=== PATIENT | female | born 1965 | race Caucasian/White ===

== ENCOUNTER 2017-03-12 13:33 | Emergency (ER) | payer OTHER ==
[~2017-03-12] VITALS: Ht 152.4 cm; Wt 40.8 kg
[~2017-03-12 13:33] MED LIST: LORA-476 PO; LURA40TA PO; METF1000 PO; QUET200T2 PO
[2017-03-12 13:36] VITALS: BP 116/87
--- NOTE | 2017-03-12 13:40 | NUR ---
Patient BIBA to bed 4 at this time.
--- NOTE | 2017-03-12 13:45 | NUR ---
PT BIBA FROM HOME S/P MECHANICAL FALL AT HOME, GAIT UNKNOWN, HITTING HEAD, SUSTAINING 2CM LACERATION TO RIGHT PARIETAL REGION OF HEAD. NO ACTIVE BLEEDING NOTED TO SITE AT THIS TIME. UNKNOWN LOC, PT ABLE TO VERBALLY RESPOND TO SIMPLE QUESTIONS AND ABLE TO FOLLOW SIMPLE COMMANDS. PT AWAKE, ALERT ON ARRIVAL, PERRLA HX DM, SCHIZOPHRENIA, MENTAL DELAY.SKIN IS PINK/WARM/DRY; TACHYCARDIA NOTED ON MONITOR AT THIS TIME; PATIENT STATES "NO" WHEN ASKED IF SHE WAS IN ANY PAIN, NO GUARDING OR FACIAL CLENCHING NOTED AT THIS TIME; VSS; BL LUNG SOUNDS CLEAR, RR EVEN/UNLABORED AT THIS TIME; PT NOTED W/ DIAPER FROM HOME. PATIENT POSITIONED FOR COMFORT; HOB ELEVATED; BED DOWN. LISA CHAVARRIA MADE AWARE OF PT STATUS. Addendum: 03/12/17 at 1411 by GauzyR PER [facility], PT ACTING NEUROLOGICALLY AT BASELINE. Addendum: 03/12/17 at 1549 by [facility] POST IRRIGATION TO RIGHT SIDE OF HEAD, NO LACERATIONS NOTED AT THIS TIME, SLIGHT BLEEDING NOTED ON ARRIVAL, HEMATOMA PRESENT AT THIS TIME, ER MD NOTIFIED, WILL CONTINUE TO MONITOR
--- NOTE | 2017-03-12 13:45 | NUR ---
Note undone in EDM - 03/12/17 at 1407 by SHAYNE PT BIBA FROM HOME S/P MECHANICAL FALL AT HOME, GAIT UNKNOWN, HITTING HEAD, SUSTAINING 2CM LACERATION TO RIGHT PARIETAL REGION OF HEAD. UNKNOWN LOC, PT IS VERBAL. HX DM, SCHIZOPHRENIA, MENTAL DELAY. SKIN IS PINK/WARM/DRY; HR EVEN AND REGULAR; PT DENIES ANY FEVER, CP, SOB, OR COUGH AT THIS TIME; PATIENT STATES "NO" WHEN ASKED IF SHE WAS IN ANY PAIN, NO GUARDING OR FACIAL CLENCHING NOTED AT THIS TIME; VSS; PATIENT POSITIONED FOR COMFORT; HOB ELEVATED; BED DOWN. ER MADE AWARE OF PT STATUS.
[2017-03-12] MEDS ORDERED: NACL 0.9% 1,000 ML IV ONE (15:05)
--- NOTE | 2017-03-12 15:10 | NUR ---
XRAY AT BEDSIDE
[2017-03-12 15:18] LABS: BASOPHILS # (AUTO) 0.5 K/uL (0.00-0.22); EOSINOPHILS # (AUTO) 0.2 K/uL (0-0.4); EOSINOPHILS % (AUTO) 1.3 % (0.0-4.0); HEMATOCRIT 40.7 % (36-48); HEMOGLOBIN 13.2 g/dL (12.0-16.0); LYMPHOCYTES # (AUTO) 1.5 K/uL (2.5-16.5); LYMPHOCYTES % (AUTO) 10.5 % (20.5-51.1); MEAN CORPUSCULAR HEMOGLOBIN 27 pg (27-31); MEAN CORPUSCULAR HGB CONC 32 g/dL (33-37); MEAN CORPUSCULAR VOLUME 82 fL (80-94); MONOCYTES # (AUTO) 0.4 K/uL (0.8-1.0); MONOCYTES % (AUTO) 3.2 % (1.7-9.3); NEUTROPHILS # (AUTO) 11.3 K/uL (1.8-7.7); PLATELET COUNT (AUTO) 280 K/uL (140-450); RED BLOOD CELL COUNT(AUTO) 4.97 MIL/uL (4.20-5.40); RED CELL DISTRIBUTION WIDTH 14.7 % (11.6-13.7); WHITE BLOOD COUNT (AUTO) 13.9 K/uL (4.8-10.8)
[2017-03-12 15:29] LABS: ANION GAP 19.5 (8-16); CALCIUM 9.1 mg/dL (8.5-10.1); CARBON DIOXIDE 23.4 mmol/L (21-32); CREATININE 0.7 mg/dL (0.6-1.3); POTASSIUM 4.9 mmol/L (3.5-5.1)
[2017-03-12 15:35] LABS: PHENYTOIN (DILANTIN) 0.6 ug/ml (10.0-20.0)
[2017-03-12 15:36] LABS: PHENOBARBITAL < 1 ug/ml (15-40)
[2017-03-12 15:54] LABS: AMPHETAMINE, URINE NEG. ng/ml (NEG <=1000); BARBITURATE, URINE NEG. ng/ml (NEG <=200); BENZODIAZEPINE, URINE NEG. ng/mL (NEG <=200); CANNABINOID, URINE NEG. ng/mL (NEG <=50); COCAINE, URINE NEG. ng/mL (NEG <=300); OPIATE, URINE NEG. ng/mL (NEG <=2000); PHENCYCLIDINE SCREEN,URINE NEG. ng/mL (NEG <=25)
--- NOTE | 2017-03-12 16:54 | NUR ---
Patient appears to be resting comfortably in bed. Respirations even and unlabored. FAMILY AT BEDSIDE.
--- NOTE | 2017-03-12 17:27 | NUR ---
PT TO CT VIA GURNEY, TRANSPORTED BY TECH
--- NOTE | 2017-03-12 17:50 | NUR ---
PT RETURNED FROM CT VIA JAIME, ACCOMPANIED BY TREVOR, PT STABLE AT THIS TIME, PUT BACK ON ALL MONITORS
--- NOTE | 2017-03-12 18:20 | NUR ---
Patient appears to be resting comfortably in bed. Vital Signs STABLE AT THIS TIME. Respirations even and unlabored. ON ALL MONITORS AND SEIZURE PRECAUTIONS, BED AT LOWEST POSITION, WILL CONTINUE TO MONITOR
--- NOTE | 2017-03-12 19:05 | NUR ---
IV removed, catheter intact and site benign. Applied folded 4x4 gauze and tape to stop bleeding. PT TOLERATED PROCEDURE WELL.
[2017-03-12 19:15] VITALS: BP 134/78
--- NOTE | 2017-03-12 19:15 | NUR ---
Patient discharged with v/s stable. Written and verbal after care instructions given and explained. Patient verbalized understanding. Wheel Chair Assisted with FAMILY to car. All questions addressed prior to discharge. Advised to follow up with PMD.
== END 2017-03-12 19:15 | disposition home or self-care (01) ==
LOC: MED 13:33
DX: S00.81XA Abrasion of other part of head, initial encounter (principal); E11.9 Type 2 diabetes mellitus without complications; W18.39XA Other fall on same level, initial encounter; F20.9 Schizophrenia, unspecified; Y93.89 Activity, other specified; Z79.899 Other long term (current) drug therapy; Y92.89 Other specified places as the place of occurrence of the external cause; Y99.8 Other external cause status
CPT/HCPCS: 36415; 70450; 71010; 80048; 80156; 80184; 80185; 80305; 82009; 82948; 85025; 93005; 96360; 99285; C1758; J7030; Q0092

== ENCOUNTER 2018-03-10 14:45 | Inpatient (IN) | payer OTHER ==
[~2018-03-10] VITALS: Ht 160 cm; Wt 44.0 kg
[2018-03-10] MEDS: BLOOD GLUCOSE MONITORING 1 DEV DEV FS SCH ×6 (00:45→23:45)
--- NOTE | 2018-03-10 14:50 | NUR ---
PT BIBA ALS TO BED 4
[2018-03-10 14:51] VITALS: BP 135/92
[2018-03-10] MEDS ORDERED: DIVA250T12 PO (15:01)
[2018-03-10] MEDS ORDERED: LISI10TA11 PO (15:01)
--- NOTE | 2018-03-10 15:15 | NUR ---
PT. BIB ALS DUE TO SOB AND ABD PAIN SINCE YESTERDAY. MOTHER STATES " YESTERDAY SHE WAS COMPLAINING THAT HER STOMACH HURT A LOT , SHE ATE AND KEPT DRINKING WATER, THEN SHE VOMITED ONCE, SHE KEPT COMPLAINING OF PAIN AND JUST SIPPED WATER THROUGHOUT THE NIGHT, IN THE MORNING SHE WAS VERY COLD AND STARTED BREATHING HARD, SO I DECIDED TO BRING HER IN AND SHE COMPLAINED OF NOT BEING ABLE TO BREATHE". PT. HAS ACCESORY MUSCLE USE UPON BREATHING TACHYPNEIC, RR LABORED. PT. IS COLD AND DRY TO TOUCH, PROVIDED BLANKETS. ABD IS HARD AND DISTENDED, PER MOTHER " SHE HAS SUFFERED FROM CONSTIPATION A LOT". PT. IS LETHARGIC, PALE COLOR TO SKIN. ER MD NOTIFIED. WILL CONTINUE TO MONITOR.
[2018-03-10] MEDS ORDERED: NACL 0.9% 2,000 ML IV SCH (15:16)
[2018-03-10] MEDS ORDERED: fentaNYL 0.05 MG/ML VIAL IVP ONE (15:20)
[2018-03-10] MEDS ORDERED: PIPERACILLIN/TAZOBACTAM 3.375 GM in DEXT 5% MINI-BAG PLUS 50 ML IV ONE (15:20)
[2018-03-10] MEDS ORDERED: FAMOTIDINE 20 MG/2 ML VIAL IVP ONE (15:20)
[2018-03-10] MEDS ORDERED: ONDANSETRON 4 MG/2 ML VIAL IVP ONE (15:20)
--- NOTE | 2018-03-10 15:55 | NUR ---
ONE IV LINE ESTABLISHED IN R ANKLE, INFORMED DR. PELAEZ, QUESTIONED DR. PELAEZ FOR CENTRAL LINE, PER DR. PELAEZ THAT ONE LINE WAS FINE AND TO START THE IV FLUIDS FIRST. WILL CONTINUE TO MONITOR.
[2018-03-10] MEDS ORDERED: SODIUM BICARBONATE 8.4% PFS 50 MEQ/50 ML SYR IVP ONE ×2 (16:00→16:55)
[2018-03-10 16:04] LABS: HEMATOCRIT 47.8 % (36-48); HEMOGLOBIN 14.8 g/dL (12.0-16.0); MEAN CORPUSCULAR HEMOGLOBIN 27 pg (27-31); MEAN CORPUSCULAR HGB CONC 31 g/dL (33-37); MEAN CORPUSCULAR VOLUME 86.2 fL (80-94); PLATELET COUNT (AUTO) 320 K/uL (140-450); RED BLOOD CELL COUNT(AUTO) 5.55 MIL/uL (4.20-5.40); RED CELL DISTRIBUTION WIDTH 15.1 % (11.6-13.7)
[2018-03-10 16:28] LABS: ALBUMIN 3.1 g/dL (3.4-5.0); ANION GAP 48.7 (8-16); CREATININE 2.7 mg/dL (0.6-1.3)
--- NOTE | 2018-03-10 16:39 | NUR ---
DR. PELAEZ NOTIFIED OF CRITICAL LAB OF POTTASIUM 8.1 AND GLUCOSE : 509, AND WBC: 37.8 REPORTED BY REJI Huerta AND NITHIN Gregorio. NO FURTHER ORDERS AT THIS TIME.
[2018-03-10 16:41] LABS: MAGNESIUM 2.8 mg/dL (1.8-2.4)
[2018-03-10 16:44] LABS: WHITE BLOOD COUNT (AUTO) 37.8 K/uL (4.8-10.8)
--- NOTE | 2018-03-10 16:52 | NUR ---
LAB AT BEDSIDE
[2018-03-10] MEDS ORDERED: SODIUM POLYSTYRENE 15 GM/60 ML UDBTL PR ONE (16:55)
[2018-03-10] MEDS ORDERED: ALBUTEROL 0.083% 2.5 MG/3 ML NEBU INH ONE (16:55)
[2018-03-10] MEDS ORDERED: INSULIN REGULAR, HUMAN 100 UNIT/ML VIAL SUBQ ONE (16:55)
[2018-03-10] MEDS ORDERED: DEXTROSE 25% 10 ML SYR IVP ONE (16:55)
[2018-03-10] MEDS ORDERED: CALCIUM GLUCONATE 10% 1000 MG/10 ML VIAL IVP ONE (16:55)
--- NOTE | 2018-03-10 17:00 | NUR ---
REJI FROM LAB CALLED AND REPORTED A CRITICAL LAB FINDING OF TROPONIN 0.088 AND CO2 6.4 L. ER MD PELAEZ NOTIFIED. NO FURTHER ORDERS AT THIS TIME, DR. PELAEZ TO SEE PATIENT. WILL CONTINUE TO MONITOR.
[2018-03-10 17:01] LABS: LYMPHOCYTES % (MANUAL) 15 % (20-46); MONOCYTES % (MANUAL) 4 % (5-12)
[2018-03-10] MEDS ORDERED: DEXTROSE 50% 50 ML SYR IVP ONE (17:17)
[2018-03-10 17:18] LABS: CARBON DIOXIDE 6.4 mmol/L (21-32); POTASSIUM 8.1 mmol/L (3.5-5.1)
[2018-03-10 17:46] LABS: ACETONE, SERUM NEGATIVE (NEGATIVE)
[2018-03-10 17:57] LABS: CKMB RELATIVE INDEX 4.5 (0.0-2.5); CREATINE KINASE MB 81.8 ng/mL (0-3.6)
--- NOTE | 2018-03-10 18:00 | NUR ---
NGT 14 F BY MEMO LOPEZ TO Dang HAN, VERIFIED PLACEMENT VIA AUSCULTATION. DR. PELAEZ NOTIFIED.
--- NOTE | 2018-03-10 18:04 | NUR ---
16F HINKLE CATH INSERTED, WITH BROWN URINE DRAINING INTO BAG, USED ASEPTIQUE TECHNIQUE, PLACED BY MEMO LOPEZ.
--- NOTE | 2018-03-10 18:23 | NUR ---
ONE ATTEMPT WAS MADE TO INSERT KAYEXALATE RECTALLY WITH SYRINGE AND PATIENIT HAS SO MUCH STOOL IN THE RECTUM THAT I WAS UNABLE TO ADMINISTER.
[2018-03-10 18:26] LABS: APPEARANCE,URINE CLOUDY (CLEAR)
[2018-03-10 18:30] LABS: RBC,URINE 0-5 (RARE) /HPF (0-5); WBC,URINE 0-5 (RARE) /HPF (0-5)
[2018-03-10 18:31] LABS: YEAST,URINE Many /HPF (None Seen)
[2018-03-10] MEDS ORDERED: ACETAMINOPHEN 325 MG TAB PO PRN (18:35)
[2018-03-10] MEDS ORDERED: HYDROcodone/APAP 7.5/325 MG 1 TAB PO PRN (18:35)
[2018-03-10] MEDS ORDERED: INSULIN REGULAR, HUMAN 100 UNIT in NACL 0.9% 100 ML IV SCH ×4 (18:45→19:50)
[2018-03-10] MEDS ORDERED: DEXTROSE 50% 50 ML SYR IVP PRN (18:45)
[2018-03-10] MEDS ORDERED: LORazepam 1 MG TAB PO PRN (18:45)
[2018-03-10] MEDS ORDERED: PIPERACILLIN/TAZOBACTAM 2.25 GM in DEXTROSE 5% 50 ML IV ONE (18:55)
[2018-03-10] MEDS ORDERED: ONDANSETRON 4 MG/2 ML VIAL IVP PRN (18:55)
[2018-03-10] MEDS ORDERED: ALBUTEROL SULFATE/IPRATROPIU 3 ML SOL IH PRN ×2 (18:55→22:25)
[2018-03-10] MEDS ORDERED: INSULIN LISPRO SLIDING SCALE 100 UNITS/ML VIAL SUBQ PRN (18:55)
[2018-03-10] MEDS ORDERED: DIVALPROEX 500 MG TABEC PO SCH (19:00)
--- NOTE | 2018-03-10 19:10 | NUR ---
Patient will be admitted to care of DR. DEVLIN . Admited to ICU. Will go to room #2 . Belongings list completed. Report to MEMO LOAIZA .
[2018-03-10] MEDS ORDERED: NITROGLYCERIN 0.4 MG TAB SL PRN (19:15)
--- NOTE | 2018-03-10 19:20 | NUR ---
RECEIVED PATIENT AT 1910 FROM ER. AFEBRILE BP 110/57, HR 106, RR=33, TEMP 96.6.. AOX1-2, PT IS ABLE TO MAKE NEEDS KNOWN, PERRL. PT IS LETHARGIC. LUNG SOUNDS DIMINISHED IN UPPER AND LOWER BILATERAL LOBES WITH SHALLOW BREATHS. NGT IN PLACE IN RIGHT NARES. ABDOMEN IS FLAT AND FIRM. CONTINUOUS PAIN IN ABDOMINAL REGION. STOOL IS DARK BROWN IN COLOR, SMEAR OF BLOOD IN DIAPER. NO ACTIVE BLEEDING ON RECTUM. SINUS RHYTHM ON BEDSIDE MACHINE DYER. 22 GAUGE IV ON RIGHT FOOT. 16FRENCH HINKLE CATHETER IN PLACE, URINE IS DARK MALICK/BROWN-RED IN COLOR. FLAKING SKIN ON LOWER BACK, ABRAISON ON SACRUM AND PURPLE BRUISE ON RIGHT HIP. HOB ELEVATED ABOVE 30DEG AND BED IN LOWEST POSITION. PATIENT WAS WEARING ONE EARRING ON RIGHT EAR AND RING -WAS GIVEN TO MOTHER.
[2018-03-10] MEDS: NACL 0.9% 1,000 ML IV SCH ×2 (19:40→22:34)
--- NOTE | 2018-03-10 19:50 | NUR ---
SPOKE WITH DR. JENSEN REGARDING INSULIN DRIP ORDER. PER DR. JENSEN FOLLOW THE DKA PROTOCOL. INFORMED DR. JENSEN THAT RESIDENT ONLY HAS IV ACCESS ON RIGHT FOOT AND HE SAID OKAY TO CONTINUE USING THAT AND MIGHT INSERT CENTRAL LINE LATER.
[2018-03-10 20:00] VITALS: BP 110/57
[2018-03-10] MEDS ORDERED: BISACODYL 10 MG SUPP RC SCH (20:00)
--- NOTE | 2018-03-10 20:10 | NUR ---
DR. PERALES AT BEDSIDE TO SEE PT. PT'S FAMILY AT BEDSIDE. DR. PERALES TO DISCUSS POSSIBLE CENTRAL LINE INSERTION.
[2018-03-10] MEDS ORDERED: FLUCONAZOLE 100 MG TAB PO SCH (20:30)
--- NOTE | 2018-03-10 20:30 | NUR ---
CONTACTED DR. PERALES TO CLARIFY ZOSYN AND SLIDING SCALE ORDER. INFORMED PHARMACY REGARDING ORDER.
[2018-03-10] MEDS ORDERED: ATORVASTATIN 20 MG TAB PO SCH (21:00)
[2018-03-10] MEDS ORDERED: DOCUSATE SODIUM 100 MG GELCAP PO SCH ×2 (21:00)
[2018-03-10] MEDS ORDERED: QUEtiapine FUMARATE 100 MG TAB PO SCH (21:00)
[2018-03-10] MEDS: METOPROLOL 25 MG TAB PO SCH (21:00)
[2018-03-10] MEDS ORDERED: SODIUM PHOSPHATE 118 ML ENEM RC PRN (21:25)
[2018-03-10 22:00] VITALS: BP 69/43
[2018-03-10] MEDS ORDERED: NACL 0.9% 1,000 ML IV ONE (22:20)
[2018-03-10] MEDS ORDERED: LACTULOSE 20 GM/30 ML UDC PO SCH (22:30)
--- NOTE | 2018-03-10 22:48 | NUR ---
SPOKE WITH DR. JENSEN REGARDING D5 1/2 NS ORDER PER DKA PROTOCOL.
[2018-03-10] MEDS: DEXT 5% / NACL 0.45% 1,000 ML IV SCH (22:58)
[2018-03-10] MEDS ORDERED: SODIUM BICARBONATE 8.4% PFS 50 MEQ/50 ML SYR IVP SCH (23:00)
--- NOTE | 2018-03-10 23:38 | NUR ---
INFORMED DR. PERALES THAT PT WAS VERY CONSTIPATED. HARD, FORMED STOOL WAS VISIBLE AND PT WAS DISIMPACTED. STOOL WAS LIGHT BROWN IN COLOR AND HARD. PT NOW HAS SOFT STOOL COMING OUT. SBP WAS 150S AT THIS TIME. PER DR. PERALES, HOLD BOLUS FOR NOW AND ENEMA. GIVE BOLUS IF SBP LOW AFTER COUPLE OF READINGS.
[2018-03-11] VITALS (33 sets, daily range): BP systolic 46–106; BP diastolic 18–70
[2018-03-11] MEDS ORDERED: PIPERACILLIN/TAZOBACTAM 2.25 GM VIAL IV ONE ×2 (01:02→06:04)
[2018-03-11] MEDS: PIPERACILLIN/TAZOBACTAM 2.25 GM in DEXTROSE 5% 50 ML IV SCH ×2 (01:07→06:05)
--- NOTE | 2018-03-11 01:26 | NUR ---
DR. PERALES AWARE THAT PT SBP STILL AROUND 50S AT THIS TIME. RECEIVED NEW ORDERS TO BOLUS PT AGAIN.
[2018-03-11] MEDS ORDERED: NACL 0.9% 1,000 ML IV ONE ×2 (01:30→02:20)
[2018-03-11] MEDS: BLOOD GLUCOSE MONITORING 1 DEV DEV FS SCH ×7 (01:45→09:53)
--- NOTE | 2018-03-11 02:02 | NUR ---
PT NOTED WITH LARGE SOFT BM THAT IS LIGHT BROWN IN COLOR. PT TOLERATED BEING TURNED AND REPOSITION BUT BP IS LOW AT THIS TIME. BOLUS RUNNING PER ORDER.
[2018-03-11 02:36] LABS: PROTHROMBIN TIME 12.8 secs (10.8-13.4)
[2018-03-11 02:44] LABS: MAGNESIUM 2.2 mg/dL (1.8-2.4)
--- NOTE | 2018-03-11 02:48 | NUR ---
SPOKE WITH DR. PERALES TO REPORT CURRENT BLOOD SUGAR LEVEL. ACCORDING TO HER, HOLD D5 1/2 NS AT THIS TIME AND INSULIN DRIP. WILL BOLUS PT AGAIN PER MD ORDER.
[2018-03-11 03:18] LABS: PHOSPHORUS 9.6 mg/dL (2.5-4.9)
[2018-03-11] MEDS ORDERED: NOREPINEPHRINE 4 MG in DEXTROSE 5% 250 ML IV PRN (03:30)
--- NOTE | 2018-03-11 03:35 | NUR ---
DR. JENSEN AND ANGELLA AT BEDSIDE TO SEE PT. WILL INSERT CENTRAL LINE.
[2018-03-11 03:40] LABS: ANION GAP 42.3 (8-16); CREATININE 2.5 mg/dL (0.6-1.3)
--- NOTE | 2018-03-11 03:40 | NUR ---
DR. JENSEN AND DR. RUBI ON THE PHONE WITH DR. BARNES TO DISCUSS PT'S CONDITION.
[2018-03-11] MEDS ORDERED: NOREPINEPHRINE 4 MG/4 ML VIAL IV ONE ×2 (03:41→06:58)
[2018-03-11 03:44] LABS: CARBON DIOXIDE 8.1 mmol/L (21-32); POTASSIUM 6.4 mmol/L (3.5-5.1)
--- NOTE | 2018-03-11 03:45 | NUR ---
PER DR. JENSEN, START PT ON LEVOPHED AT THIS TIME D/T SBP ON 50S. HE IS AWARE THAT PT ONLY HAS PERIPHERAL IV ACCESS. ACCORDING TO HIM OKAY TO ADMINISTER DUE TO LOW SBP.
--- NOTE | 2018-03-11 03:50 | NUR ---
PT FOR DISPATCHER SERVICE OR WORK TO ARRIVE. RESIDENTS: DR. JENSEN AND DR. RUBI AT BEDSIDE. CONSENT FOR CENTRAL LINE INSERTION ALREADY OBTAINED
--- NOTE | 2018-03-11 04:04 | NUR ---
WORLD LANGUAGE TEACHER ARRIVED.
[2018-03-11] MEDS ORDERED: SODIUM BICARBONATE 8.4% PFS 50 MEQ/50 ML SYR IVP ONE (04:09)
--- NOTE | 2018-03-11 04:46 | NUR ---
TRIPLE LUMEN CENTRAL LINE SUCCESSFULLY INSERTED ON LEFT IJ. CALLED X-RAY TECH TO OBTAIN X-RAY.
--- NOTE | 2018-03-11 04:50 | NUR ---
PT NOTED TO HAVE WHAT APPEARS FLUID THAT CAME OUT OF MOUTH. DR. JENSEN AND DR. RUBI AT BEDSIDE AND ARE AWARE. RT CALLED TO COME EVALUATE PT. PT MOUTH SUCTIONED AND ABLE TO ASPIRATE MINIMAL SECRETION.
[2018-03-11] MEDS ORDERED: NOREPINEPHRINE 8 MG in DEXTROSE 5% 250 ML IV PRN (04:55)
[2018-03-11] MEDS ORDERED: SODIUM BICARBONATE 8.4% PFS 50 MEQ/50 ML SYR IVP SCH ×2 (05:00→07:10)
[2018-03-11] MEDS ORDERED: HYDROCORTISONE NA SUCC 100 MG/2 ML VIAL IV SCH (05:00)
[2018-03-11] MEDS ORDERED: INSULIN REGULAR, HUMAN 100 UNIT in NACL 0.9% 100 ML IV SCH ×2 (05:00)
--- NOTE | 2018-03-11 05:15 | NUR ---
INFORMED DR. JENSEN THAT XRAY RESULTS ARE NOT AVAILABLE YET. CURRENTLY ONLY HAVE LEVOPHED RUNNING. PER DR. JENSEN, OKAY TO START D5 1/2 NS AND INSULIN AFTER CENTRAL LINE PLACEMENT IS CONFIRMED.
[2018-03-11] MEDS ORDERED: MORPHINE SULFATE 2 MG/ML SYR IVP PRN (05:50)
[2018-03-11] MEDS ORDERED: ALBUTEROL SULFATE/IPRATROPIU 3 ML SOL IH SCH ×3 (06:00→08:03)
[2018-03-11] MEDS: DEXT 5% / NACL 0.45% 1,000 ML IV SCH (06:00)
--- NOTE | 2018-03-11 06:00 | NUR ---
PLACED PT ON BIPAP SETTINGS 08/24 RR 12 FI02 70%. PT WAS SP02 WAS 80% WHEN THE RN CALLED ME IN TO ASSESS THE PT. PLACED THE PT ON A NON REBREATHER AND SP02 WAS STILL LOW. SO I PLACED THE PT ON BIPAP. PT IS MORE RELAXED NOW. SOB IS DECREASED.
[2018-03-11 06:57] LABS: BASOPHILS % (AUTO) 0.2 % (0.0-2.0); HEMATOCRIT 37.6 % (36-48); HEMOGLOBIN 11.9 g/dL (12.0-16.0); LYMPHOCYTES # (AUTO) 2.8 K/uL (2.5-16.5); LYMPHOCYTES % (AUTO) 25.7 % (20.5-51.1); MEAN CORPUSCULAR HEMOGLOBIN 27 pg (27-31); MEAN CORPUSCULAR HGB CONC 32 g/dL (33-37); MEAN CORPUSCULAR VOLUME 86.9 fL (80-94); MONOCYTES # (AUTO) 0.3 K/uL (0.8-1.0); MONOCYTES % (AUTO) 2.6 % (1.7-9.3); NEUTROPHILS # (AUTO) 7.8 K/uL (1.8-7.7); NEUTROPHILS % (AUTO) 71.5 % (42.2-75.2); PLATELET COUNT (AUTO) 203 K/uL (140-450); RED BLOOD CELL COUNT(AUTO) 4.33 MIL/uL (4.20-5.40); RED CELL DISTRIBUTION WIDTH 15.6 % (11.6-13.7); WHITE BLOOD COUNT (AUTO) 10.9 K/uL (4.8-10.8)
--- NOTE | 2018-03-11 07:20 | NUR ---
RECEIVED REPORT FROM NIGHT RN. PT'S BLOOD PRESSURE LOW (99/66). PUPILS FIXED AND NOT RESPONSIVE. PT SKIN IS DRY. PTS HAS RIGHT NG TUBE; CHECKED PLACEMENT AND ZERO RESIDUAL IN STOMACH. PT IS ON BIPAP. PT HAS LEFT IJ: ALL 3 PORTS FLUSH AND HAVE GOOD BLOOD DRAW. S1S2 HEARD. LUNG SOUNDS WET, COARSE AND CRACKLE SOUNDS IN UPPER LOBES, DIMINISHED BREATH SOUNDS IN LOWER LOBES. PT ABDOMEN IS FIRM AND DISTENDED. PT HAS HINKLE CATHETER IN PLACE, SCANT AMOUNT OF DARK RED-BROWN FLUID IN COLLECTION BAG. PT HAS 22 MIGUEL PERIPHERAL IV HEP LOCKED. PTS SKIN ON LOWER LIMBS IS PALE AND VERY DRY. PT IS CURRENTLY ON LEVOPHED AND INSULIN DRIP, D5 1/2NS. PT HAS BRUISE ON RIGHT HIP AND INTACT BUT PREVIOUSLY HEALED WOUND ON SACRAL AREA.
--- NOTE | 2018-03-11 07:20 | NUR ---
REPORT GIVEN TO MORNING RN FOR CONTINUITY OF CARE. VS STABLE AT THIS TIME. ENDORSED TO RN TO CHANGE IVF AFTER ANTIBIOTIC ADMINISTRATION.
[2018-03-11 07:29] LABS: ANION GAP 37.7 (8-16); CARBON DIOXIDE 9.3 mmol/L (21-32); CREATININE 2.1 mg/dL (0.6-1.3)
[2018-03-11 07:35] LABS: MAGNESIUM 1.9 mg/dL (1.8-2.4); PHOSPHORUS 8.4 mg/dL (2.5-4.9)
[2018-03-11] MEDS ORDERED: NOREPINEPHRINE 16 MG in DEXTROSE 5% 250 ML IV PRN (07:40)
[2018-03-11] MEDS ORDERED: PHENYLEPHRINE 10 MG in NACL 0.9% 250 ML IV PRN (07:40)
--- NOTE | 2018-03-11 07:51 | NUR ---
RESIDENT TEAM CAME TO SEE PT. PT'S BLOOD PRESSURE DROPPED TO 48/29, RESPIRATIONS 39. DECIDED TO INTUBATE PT.
--- NOTE | 2018-03-11 07:52 | NUR ---
CALLED ED TO REQUEST ED DOCTOR TO COME AN ASSESS PT FOR INTUBATION
[2018-03-11] MEDS ORDERED: metFORMIN 500 MG TAB PO SCH (08:00)
--- NOTE | 2018-03-11 08:00 | NUR ---
DR. BARNES WAS PAGE REGARDING PATIENT CONDITION.
[2018-03-11] MEDS ORDERED: DIVALPROEX SPRINKLES 125 MG CAPDR NG SCH (08:06)
--- NOTE | 2018-03-11 08:10 | NUR ---
NEW ABG ORDERED BY DR. BRADLEY
--- NOTE | 2018-03-11 08:12 | NUR ---
SPOKE WITH DR. LAYTON, STATED WE HAD CALLED THE WRONG DOCTOR.
--- NOTE | 2018-03-11 08:15 | NUR ---
DR BRADLEY CALLED FROM ER TO INTUBATE PT PT INTUBATED WITH 7.5 ETT BREATH SOUNDS PRESENT BILAT WET XRAY DONE ETT PULLED BACK 19CM AT GUM LINE PT ON VENT WITH SETINGS CHARTED AMBU BAG AT BEDSIDE VENT PLUGGED INTO RED OUTLET WILL CONTINUE TO TO MONITOR PT ON VENT
[2018-03-11] MEDS ORDERED: CALCIUM GLUCONATE 10% 1000 MG/10 ML VIAL ONE (08:19)
--- NOTE | 2018-03-11 08:20 | NUR ---
INTUBATION BY DR. BRADLEY (ER DOC). 20 MG ETOMIDATE GIVEN. RESPIRATORY AT BEDSIDE.
--- NOTE | 2018-03-11 08:33 | NUR ---
PATIENT HAS BEEN SCREENED AND CATEGORIZED HIGH NUTRITION RISK. PATIENT WILL BE SEEN WITHIN 1-2 DAYS OF ADMISSION. 03/11/18 03/12/[address]
[2018-03-11] MEDS ORDERED: ETOMIDATE 20 MG/10 ML VIAL IVP ONE (08:40)
[2018-03-11] MEDS ORDERED: ASPIRIN 81 MG TAB.CHEW PO SCH (09:00)
[2018-03-11] MEDS: METOPROLOL 25 MG TAB PO SCH (09:00)
[2018-03-11] MEDS ORDERED: PANTOPRAZOLE 40 MG INJ VIAL IVP SCH (09:00)
[2018-03-11] MEDS ORDERED: LACTOBACILLUS RHAMNOSUS GG 1 EACH CAP PO SCH (09:00)
[2018-03-11] MEDS ORDERED: CALCIUM GLUCONATE 10% 1,000 MG in NACL 0.9% 50 ML IV SCH (09:00)
[2018-03-11] MEDS ORDERED: DOCUSATE 100 MG/10 ML UDC GT SCH (09:00)
[2018-03-11] MEDS ORDERED: LISINOPRIL 10 MG TAB PO SCH (09:00)
[2018-03-11] MEDS ORDERED: LACTULOSE 20 GM/30 ML UDC NG SCH ×2 (09:53→21:00)
[2018-03-11] MEDS ORDERED: VASOPRESSIN 20 UNITS in NACL 0.9% 250 ML IV SCH (09:55)
--- NOTE | 2018-03-11 10:00 | NUR ---
rn and dr sheldon aware of low spo2
[2018-03-11 10:13] LABS: ALBUMIN 1.4 g/dL (3.4-5.0); ANION GAP 35.6 (8-16); CARBON DIOXIDE 11.7 mmol/L (21-32); CREATININE 2.3 mg/dL (0.6-1.3); POTASSIUM 5.3 mmol/L (3.5-5.1); TOTAL BILIRUBIN 0.6 mg/dL (0.0-1.0)
--- NOTE | 2018-03-11 10:24 | NUR ---
SPOKE WITH PHARMACY ABOUT NICHOLE-SYNEPHRINE; CHANGED CONCENTRATION TO 20MG/250ML. DECREASED DOSE BUT INCREASED CONCENTRATION.
--- NOTE | 2018-03-11 10:34 | NUR ---
SUCTION AIRWAY; DARK BROWN CONTENT COME FROM ORAL CAVITY. ABOUT 10ML REMOVED. SAT PT UP WITH HOB 35DEG
--- NOTE | 2018-03-11 10:45 | NUR ---
CPR STARTED. SEVERAL RNS, STATE APPELLATE CLERK AT BEDSIDE. WHEN CRP STARTED, ED TECHS AND DOCTOR MIRNA CAME IN. DR. NELSON AT BEDSIDE.
--- NOTE | 2018-03-11 11:00 | NUR ---
DR. BRADLEY CALLED CPR. CPR HAD BEEN CONDUCTED FOR OVER 15 MINUETS WITH MEDICATION GIVEN. PT ASYSTOLE ON MONITOR.
--- NOTE | 2018-03-11 11:00 | NUR ---
DR BRADLEY, ER DOC, CALLED TIME OF .
--- NOTE | 2018-03-11 11:00 | NUR ---
code blue called cpr done pt dr sheldon at bedside
--- NOTE | 2018-03-11 11:17 | NUR ---
CALLED [facility]. SPOKE WITH NADEEM. POSSIBLE CANDIDATE FOR TISSUE AND EYE. REFERRAL NUMBER [phone]
--- NOTE | 2018-03-11 11:29 | NUR ---
CALLED [facility]; SPOKE WITH ADRIEL GAVE NAME OF HOSPITAL, MY NAME AND CALL BACK NUMBER. ADRIEL SAID THAT THE PAINT MIXER COULD CALL BACK AND PROVIDE A CASE NUMBER.
--- NOTE | 2018-03-11 11:45 | NUR ---
MOTHER AND SISTER AT BEDSIDE.
--- NOTE | 2018-03-11 11:55 | NUR ---
SPOKE WITH PT'S FAMILY, SARAY, PT'S SISTER, SPEAKS ARMENIAN AND SPOKE WITH THE COD CLERK. DR. NELSON ALSO CAME TO SPEAK WITH THE PT'S FAMILY ABOUT THE . WE NOTIFIED PT THAT WE WOULD NEED NAME OF MORTUARY AND PERMISSION TO SEND BODY WE ARE UNABLE TO KEEP THE PATIENT HERE. FAMILY AGREED AND SAID THEY NEEDED TO GO HOME TO DISCUSS THE SITUATION OF WHERE TO SEND PT.
[2018-03-11] MEDS ORDERED: PIPER/TAZO 2.25GM/D5W PREMIX 50 ML IV SCH (12:00)
[2018-03-11] MEDS ORDERED: SODIUM POLYSTYRENE 15 GM/60 ML UDBTL PR SCH (12:00)
--- NOTE | 2018-03-11 12:09 | NUR ---
BOATSWAINS MATE DEPUTY GABRIELLE SAGE. ANSWERED ALL QUESTION. RELEASING THE BODY. CASE #: [id number]
--- NOTE | 2018-03-11 14:10 | NUR ---
SPOKE WITH DELORES VASQUEZ FROM [facility]. THEY ARE RELEASING BODY.
--- NOTE | 2018-03-11 14:37 | NUR ---
CALLED JAKI, SISTER, TO ASK ABOUT MORTUARY FOR PATIENT. Addendum: 03/11/18 at 1438 by Evie Melissa RN LEFT A VOICEMAIL
[2018-03-11 14:39] LABS: CHOL/HDL RATIO 2.4 (1-4.5); FREE T4 (FREE THYROXINE) 0.43 ng/dL (0.76-1.46); THYROID STIMULATING HORMONE 0.56 uIU/mL (0.34-3.74)
[2018-03-11 15:00] LABS: PHOSPHORUS 9.4 mg/dL (2.5-4.9)
--- NOTE | 2018-03-11 15:46 | NUR ---
NOTIFIED THE FOLLOWING CONSULTING PHYSICIANS OF THE PATIENT'S : Crystal VU @ [address] @ [address] @ [phone]
--- NOTE | 2018-03-11 15:50 | NUR ---
Child Protective Services Specialist Note: I met with patient's mother Annmarie Martinez. She was tearful, she stated her daughter Yajaira was on her way to our hospital and asked me if I could please call her other daughter Jina . I called Jina and informed her her mother would like to speak with her. Per Annmarie (Kiswahili speaking), she would like to spend some time with her daughter, she stated she did not need my assistance at this time and told me she would let me know if she did.
--- NOTE | 2018-03-11 16:04 | NUR ---
CALLED JAKI, PT'S SISTER, TO SEE IF THEY HAD MADE A DECISION ABOUT A MORTUARY TO SEND PT. LEFT A VOICEMAIL.
[2018-03-11] MEDS ORDERED: CALCIUM ACETATE 667 MG TAB PO SCH (17:00)
--- NOTE | 2018-03-11 17:06 | NUR ---
CALLED PT'S SISTER, JAKI, FOR THIRD TIME TO ASK IF THEY HAD DECIDED ON A LOCATION FOR MORTUARY. NO ANSWER, LEFT A VOICEMAIL. NOTIFIED THE FAMILY WE HAVE A CONTRACT WITH [facility] WE CAN CONNECT THEM WITH.
--- NOTE | 2018-03-11 17:31 | NUR ---
WENT THROUGH PT'S PREVIOUS VISITS AND FOUND THE FOLLOWING NUMBERS LISTED FOR SISTERS ANN WAITE [phone] SARAY MYERS [phone] JAKI MYERS [phone] I HAVE LEFT A VOICEMAIL ON ALL NUMBERS REQUESTING THEY CALL US IN THE ICU.
--- NOTE | 2018-03-11 17:51 | NUR ---
CALLED JAKI AGAIN TO NOTIFY HER THAT THE [facility] WILL [facility], PROVIDED THE NUMBER FOR THEM TO CALL [phone]
--- NOTE | 2018-03-11 18:04 | NUR ---
CALLED [facility] TO ASK ABOUT THE PROCESS OF SENDING THEM THE PT. NO ONE IN THE PT'S FAMILY IS ANSWERING ALTHOUGH SEVERAL CALLS AND VOICEMAIL(S) HAVE BEEN LEFT. [facility] EMPLOYEE SAID SHE WAS GOING TO FIGURE OUT THE PROCEDURE ON AN 'ABANDONED BODY' CASE AND CALL US BACK AT THE UNIT.
--- NOTE | 2018-03-11 18:20 | NUR ---
SPOKE WITH PATI AND HE ADVISED ME (SAT WITH ME WHILE I CALLED) TO CALL [facility] TO LET THEM KNOW THAT ALTHOUGH THE PT'S FAMILY HAVE NOT BEEN ANSWERING THE PHONE, [facility] WILL PAY FOR THEM TO COME SERVICE RIG OPERATOR THE BODY WE CANNOT KEEP HER HERE AN LONGER.
--- NOTE | 2018-03-11 18:30 | NUR ---
SPOKE WITH KOKO BESS, SHE REQUESTED WE FAX A FACE-SHEET OVER FAX NUMBER:[phone] FAX SENT AND RECEIVED CONFIRMATION OF FAX RECEIVED
--- NOTE | 2018-03-11 18:41 | NUR ---
SPOKE WITH SARAY, PT'S SISTER. SHE WAS UNAWARE THAT THEY HAD TO JUSTICE PROFESSOR THE BODY TODAY AND UNDER THE IMPRESSION FROM THE ELECTRICAL CAD TECHNICIAN SHE SPOKE WITH EARLIER THAT SHE HAD 24 HOURS AND CONFUSED ABOUT THE WHOLE PROCESS. THEY STILL HAVE NOT DECIDED A MORTUARY TO USE. I NOTIFIED HER THAT WE HAVE A DIFFERENT POLICY DUE TO NOT HAVE PROPER WAY TO STORE THE BODY. I RECEIVED VERBAL CONSENT THAT IF THEY DO NOT DECIDE ON A MORTUARY TO USE AND HAVE THE BODY PICKED UP BY 1999, [facility] WILL BE SENDING THE BODY TO [facility]. GAVE SARAY THE NAME AND LOCATION OF [facility] AND SHE SAID SHE WOULD CALL ME BACK NATHAN. ANTONIO WONG RN AND PATI(STATION CAPTAIN) WITH ME DURING PHONE CALL.
--- NOTE | 2018-03-11 19:07 | NUR ---
GAVE REPORT TO NIGHT RN FOR CONTINUATION OF CARE.
--- NOTE | 2018-03-11 19:24 | NUR ---
SPOKE SHEILA WITH FROM [facility]. THEY WILL COMING TO GET THE PATIENT/S BODY WITHIN 1.5-2 HOURS. [phone] AND ASK FOR SHEILA
--- NOTE | 2018-03-11 19:58 | NUR ---
SPOKE WITH JAKI MYERS (SISTER) TO VERIFY IF THEY CALLED [facility], PER JAKI, [facility] WILL FLATBED STITCHER THE BODY HERE IN ICU.
--- NOTE | 2018-03-11 20:35 | NUR ---
[facility] MORTICIAN HERE AT 2014 IN THE UNIT TO GUTTER MOUTH CUTTER THE BODY, LEFT AT 2032. PATIENT'S CLOTHINGS GIVEN TO THE MORTICIAN.
== END 2018-03-11 11:00 | disposition expired | DRG 871 ==
LOC: MED 14:45 → MIC 18:43
PROVIDERS: ADMIT Family Medicine; ATTEND Family Medicine
PROC: 02HV33Z Insertion of Infusion Device into Superior Vena Cava, Percutaneous Approach (ICD-10-PCS; principal; 2018-03-11)
PROC: 5A12012 Performance of Cardiac Output, Single, Manual (ICD-10-PCS; 2018-03-11)
PROC: 5A09357 Assistance with Respiratory Ventilation, Less than 24 Consecutive Hours, Continuous Positive Airway Pressure (ICD-10-PCS; 2018-03-11)
PROC: 5A1935Z Respiratory Ventilation, Less than 24 Consecutive Hours (ICD-10-PCS; 2018-03-11)
PROC: 0BH17EZ Insertion of Endotracheal Airway into Trachea, Via Natural or Artificial Opening (ICD-10-PCS; 2018-03-11)
DX: A41.9 Sepsis, unspecified organism (principal); E11.10 Type 2 diabetes mellitus with ketoacidosis without coma; G93.41 Metabolic encephalopathy; N17.0 Acute kidney failure with tubular necrosis; R65.21 Severe sepsis with septic shock; J69.0 Pneumonitis due to inhalation of food and vomit; K85.90 Acute pancreatitis without necrosis or infection, unspecified; D68.59 Other primary thrombophilia; E44.0 Moderate protein-calorie malnutrition; J98.11 Atelectasis; N39.0 Urinary tract infection, site not specified; E87.5 Hyperkalemia; M94.0 Chondrocostal junction syndrome [Tietze]; I10 Essential (primary) hypertension; E83.41 Hypermagnesemia; F20.9 Schizophrenia, unspecified; E11.43 Type 2 diabetes mellitus with diabetic autonomic (poly)neuropathy; K31.84 Gastroparesis; K59.00 Constipation, unspecified; K72.90 Hepatic failure, unspecified without coma; E83.51 Hypocalcemia; E83.39 Other disorders of phosphorus metabolism; I46.9 Cardiac arrest, cause unspecified; K52.89 Other specified noninfective gastroenteritis and colitis; K76.89 Other specified diseases of liver; E11.69 Type 2 diabetes mellitus with other specified complication; Z79.84 Long term (current) use of oral hypoglycemic drugs
CPT/HCPCS: 36415; 36600; 43753; 51702; 71045; 71250; 80048; 80053; 81001; 82009; 82140; 82150; 82533; 82550; 82553; 82803; 82948; 83036; 83690; 83735; 83874; 83880; 84100; 84439; 84443; 84484; 85025; 85379; 85610; 85730; 87040; 87081; 87086; 93005; 94640; 96361; 96372; 96374; 96375; 96376; 99291; C9113; G0482; J0610; J1642; J1644; J1720; J1815; J2370; J2405; J2543; J3010; J3490; J7030; J7060; J7613; J7620; Q0092